=== PATIENT | female | born 1940 | race Asian ===

== ENCOUNTER 2016-10-31 09:39 | Outpatient (CLI) | payer OTHER | END 2016-10-31 10:39 | disposition home or self-care (01) | LOC: CT 09:39 | DX: S02.91XA Unspecified fracture of skull, initial encounter for closed fracture (principal) ==

== ENCOUNTER 2017-01-05 13:53 | Outpatient (CLI) | payer OTHER | END 2017-01-05 19:54 | disposition home or self-care (01) | LOC: MAMMO 13:53 | DX: Z12.31 Encounter for screening mammogram for malignant neoplasm of breast (principal) | CPT/HCPCS: G0202-TC ==

== ENCOUNTER 2017-05-07 06:38 | Day surgery (SDC) | payer OTHER | END 2017-05-07 10:20 | disposition home or self-care (01) | LOC: OR 06:38 | PROC: 0DJD8ZZ Inspection of Lower Intestinal Tract, Via Natural or Artificial Opening Endoscopic (ICD-10-PCS; principal; 2017-05-07) | DX: K57.30 Diverticulosis of large intestine without perforation or abscess without bleeding (principal); Z86.010 Personal history of colon polyps; Z80.0 Family history of malignant neoplasm of digestive organs; I10 Essential (primary) hypertension; E11.9 Type 2 diabetes mellitus without complications; K21.9 Gastro-esophageal reflux disease without esophagitis | CPT/HCPCS: J3010 ==

== ENCOUNTER 2017-10-09 13:03 | Outpatient (CLI) | payer OTHER | END 2017-10-09 14:05 | disposition home or self-care (01) | LOC: US 13:03 | DX: E05.90 Thyrotoxicosis, unspecified without thyrotoxic crisis or storm (principal) ==

== ENCOUNTER 2018-01-19 09:08 | Outpatient (CLI) | payer OTHER | END 2018-01-19 22:54 | disposition home or self-care (01) | LOC: MAMMO 09:08 | DX: Z12.31 Encounter for screening mammogram for malignant neoplasm of breast (principal) ==

== ENCOUNTER 2019-02-15 09:55 | Outpatient (CLI) | payer OTHER | END 2019-02-15 20:16 | disposition home or self-care (01) | LOC: MAMMO 09:55 | DX: Z12.31 Encounter for screening mammogram for malignant neoplasm of breast (principal) ==

== ENCOUNTER 2019-06-19 20:51 | Emergency (ER) | payer OTHER ==
[~2019-06-19] VITALS: Ht 157.5 cm; Wt 67.6 kg
[2019-06-19 21:40] LABS: PLATELET COUNT 277 K/uL (152-353)
[2019-06-19 21:46] LABS: POTASSIUM 3.5 mmol/L (3.6-5.2); SODIUM 140 mmol/L (136-145)
[2019-06-20 00:51] VITALS: BP 148/78; TEMP 97.8
== END 2019-06-20 00:56 | disposition home or self-care (01) ==
LOC: ED 20:51
PROVIDERS: Hospitalist
DX: K21.9 Gastro-esophageal reflux disease without esophagitis (principal); K29.70 Gastritis, unspecified, without bleeding
CPT/HCPCS: 36415; 80053; 82150; 82550; 83690; 84484; 85027; 93005; 96360; 96375; 99284; J2405; Q9963

== ENCOUNTER 2020-05-02 11:49 | Emergency (ER) | payer OTHER ==
[~2020-05-02] VITALS: Ht 157.5 cm; Wt 69.9 kg
[2020-05-02] MEDS ORDERED: JANUVIA100 MG PO (12:10)
[2020-05-02] MEDS ORDERED: AVAPRO300 MG PO (12:11)
[2020-05-02] MEDS ORDERED: PROTONIX20 MG PO (12:11)
[2020-05-02] MEDS ORDERED: LIPITOR10 MG PO (12:12)
[2020-05-02] MEDS ORDERED: AMLODIPINE BESYLATE PO (12:13)
[2020-05-02] MEDS ORDERED: POTASSI PO (12:13)
[2020-05-02] MEDS ORDERED: MOBIC15 MG PO (12:13)
[2020-05-02 12:44] LABS: PLATELET COUNT 273 K/uL (152-353)
[2020-05-02 13:11] LABS: POTASSIUM 3.9 mmol/L (3.6-5.2)
[2020-05-02 16:00] VITALS: BP 133/82; TEMP 97.6
== END 2020-05-02 16:00 | disposition home or self-care (01) ==
LOC: ED 11:49
PROVIDERS: Emergency Medicine
DX: K62.5 Hemorrhage of anus and rectum (principal); K57.90 Diverticulosis of intestine, part unspecified, without perforation or abscess without bleeding
CPT/HCPCS: 36415; 80053; 81000; 82150; 82272; 83690; 85027; 99283; Q9963

== ENCOUNTER 2020-07-09 09:17 | Outpatient (CLI) | payer OTHER ==
[~2020-07-09 09:17] MED LIST: AMLODIPINE BESYLATE PO; AVAPRO300 MG PO; JANUVIA100 MG PO; LIPITOR10 MG PO; MOBIC15 MG PO; POTASSI PO; PROTONIX20 MG PO
== END 2020-07-09 19:14 | disposition home or self-care (01) ==
LOC: MAMMO 09:17
DX: Z13.820 Encounter for screening for osteoporosis (principal); Z12.31 Encounter for screening mammogram for malignant neoplasm of breast; N95.8 Other specified menopausal and perimenopausal disorders

== ENCOUNTER 2020-08-01 09:57 | Day surgery (SDC) | payer OTHER ==
[2020-07-26 11:31] LABS: PLATELET COUNT 232 K/uL (152-353)
[~2020-08-01] VITALS: Ht 30.5 cm; Wt 0.5 kg
== END 2020-08-01 11:22 | disposition home or self-care (01) ==
LOC: OR 09:57
PROVIDERS: Internal Medicine Gastroenterology
PROC: 0DJD8ZZ Inspection of Lower Intestinal Tract, Via Natural or Artificial Opening Endoscopic (ICD-10-PCS; principal; 2020-08-01)
DX: K57.31 Diverticulosis of large intestine without perforation or abscess with bleeding (principal); K64.8 Other hemorrhoids; Z86.010 Personal history of colon polyps; Z83.71 Family history of colonic polyps; Z12.11 Encounter for screening for malignant neoplasm of colon
CPT/HCPCS: 80053; 85027; J2704

== ENCOUNTER 2020-09-10 11:33 | Outpatient (CLI) | payer OTHER | END 2020-09-10 23:19 | disposition home or self-care (01) | LOC: RAD 11:33 | PROVIDERS: ATTEND Physician Assistant | DX: M25.512 Pain in left shoulder (principal) ==

== ENCOUNTER 2020-11-16 11:15 | Outpatient (CLI) | payer OTHER | END 2020-11-16 19:56 | disposition home or self-care (01) | LOC: RAD 11:15 | PROVIDERS: ATTEND Physician Assistant | DX: M25.512 Pain in left shoulder (principal) ==

== ENCOUNTER 2021-03-16 11:33 | Outpatient (CLI) | payer OTHER | END 2021-03-16 23:51 | disposition home or self-care (01) | LOC: RAD 11:33 | PROVIDERS: ATTEND Physician Assistant | DX: M25.571 Pain in right ankle and joints of right foot (principal); M79.671 Pain in right foot ==

== ENCOUNTER 2021-07-11 08:57 | Outpatient (CLI) | payer OTHER | END 2021-07-11 20:09 | disposition home or self-care (01) | LOC: MAMMO 08:57 | PROVIDERS: ATTEND Nurse Practitioner Family | DX: Z12.31 Encounter for screening mammogram for malignant neoplasm of breast (principal) ==

== ENCOUNTER 2021-08-24 11:02 | Outpatient (CLI) | payer OTHER | END 2021-08-24 19:31 | disposition home or self-care (01) | LOC: RAD 11:02 | PROVIDERS: ATTEND Physician Assistant | DX: M25.512 Pain in left shoulder (principal) ==

== ENCOUNTER 2022-02-15 11:26 | Outpatient (CLI) | payer OTHER | END 2022-02-15 19:42 | disposition home or self-care (01) | LOC: RAD 11:26 | PROVIDERS: ATTEND Physician Assistant | DX: M25.512 Pain in left shoulder (principal) ==

== ENCOUNTER 2022-07-10 09:35 | Outpatient (CLI) | payer OTHER | END 2022-07-10 20:50 | disposition home or self-care (01) | LOC: RAD 09:35 | PROVIDERS: ATTEND Nurse Practitioner Family | DX: Z13.820 Encounter for screening for osteoporosis (principal); N95.8 Other specified menopausal and perimenopausal disorders ==

== ENCOUNTER 2022-07-20 10:21 | Emergency (ER) | payer OTHER ==
[~2022-07-20] VITALS: Ht 30.5 cm; Wt 64.4 kg
[2022-07-20 10:58] VITALS: BP 134/87; TEMP 98.9
== END 2022-07-20 10:58 | disposition home or self-care (01) ==
LOC: ED 10:21
DX: R21 Rash and other nonspecific skin eruption (principal); L02.03 Carbuncle of face
CPT/HCPCS: 99282

== ENCOUNTER 2022-09-03 10:51 | Outpatient (CLI) | payer OTHER | END 2022-09-03 19:12 | disposition home or self-care (01) | LOC: MAMMO 10:51 | PROVIDERS: ATTEND Nurse Practitioner Family | DX: Z12.31 Encounter for screening mammogram for malignant neoplasm of breast (principal) ==

== ENCOUNTER 2023-06-08 16:39 | Outpatient (CLI) | payer OTHER | END 2023-06-08 19:20 | disposition home or self-care (01) | LOC: RAD 16:39 | PROVIDERS: ATTEND Orthopaedic Surgery | DX: M25.512 Pain in left shoulder (principal) ==